=== PATIENT | female | born 1945 | race Caucasian/White ===

== ENCOUNTER 2017-02-05 07:36 | Day surgery (SDC) | payer OTHER ==
[2017-02-05] MEDS ORDERED: TETRACAINE 0.5% OPHTH 1 DOSE AFFEYE ONE ×4 (08:00→10:25)
[2017-02-05] MEDS ORDERED: VERSED ONE ×2 (08:05→15:34)
[2017-02-05] MEDS ORDERED: VIGAMOX 0.5% OPHTH 1 DOSE AFFEYE ONE ×5 (08:05→11:09)
[2017-02-05] MEDS ORDERED: PROLENSA OPHTH 1 DOSE AFFEYE ONE (08:16)
[2017-02-05] MEDS ORDERED: ALPHAGAN-P OPHTH 1 DOSE AFFEYE ONE (08:17)
[2017-02-05] MEDS ORDERED: MYDRIACIL OPHTH 1 DOSE AFFEYE ONE ×3 (08:18→08:20)
[2017-02-05] MEDS ORDERED: CYCLOGYL 1% OPHTH 1 DOSE OP ONE ×3 (08:18→08:20)
[2017-02-05] MEDS ORDERED: AK-DILATE 2.5% OPHTH 1 DOSE OP ONE ×3 (08:18→08:20)
[2017-02-05] MEDS ORDERED: NS 500 ML IV 500 ML IV ONE (08:22)
[2017-02-05] MEDS ORDERED: VERSED IVP ONE (10:25)
[2017-02-05] MEDS ORDERED: AK-DILATE 10% OPHTH 1 DOSE AFFEYE ONE ×2 (10:27)
[2017-02-05] MEDS ORDERED: BETADINE OPHTH SOLN 5% EACHEYE ONE (10:31)
[2017-02-05] MEDS ORDERED: DUOVISC IO ONE (10:57)
[2017-02-05] MEDS ORDERED: ADRENALINE CHL INJ IJ ONE (10:57)
[2017-02-05] MEDS ORDERED: BSS OPHTH (PLAIN) 500 ML with VANCOMYCIN HCL 500 MG VIAL 25 MG, ADRENALINE CHL INJ 1 MG IR ONE ×3 (10:57)
[2017-02-05] MEDS ORDERED: XYLOCAINE-MPF 1% IJ ONE (10:57)
[2017-02-05 11:29] VITALS: BP 133/70
== END 2017-02-05 11:30 | disposition home or self-care (01) ==
LOC: SURG1 07:36
PROVIDERS: ATTEND Ophthalmology
PROC: 08RJ3JZ Replacement of Right Lens with Synthetic Substitute, Percutaneous Approach (ICD-10-PCS; principal; 2017-02-05 10:30)
PROC: 08DJ3ZZ Extraction of Right Lens, Percutaneous Approach (ICD-10-PCS; principal; 2017-02-05 10:30)
DX: H25.11 Age-related nuclear cataract, right eye (principal); H25.011 Cortical age-related cataract, right eye; H52.221 Regular astigmatism, right eye
CPT/HCPCS: 99100; A4217; J0170; J2250; J3370